=== PATIENT | male | born 2000 | race Hispanic/Latino ===

== ENCOUNTER 2021-01-15 22:30 | Emergency (ER) | payer SELFPAY ==
[2021-01-16 00:30] LABS: SARS-COV-2 RT PCR NEGATIVE (NEGATIVE)
[2021-01-16 02:06] LABS: Absolute Lymphocytes (CBC) 1.3 K/uL (0.7-4.9); Basophils % 0.3 % (0-1.3); Hematocrit 40.2 % (39.6-49.0); Lymphocytes % 18.4 % (15.3-44.8); MPV 9.3 fL (7.6-11.3); RBC Red Blood Cell Count 4.41 M/uL (4.33-5.43)
[2021-01-16] MEDS ORDERED: NA CHLORIDE 0.9% 1,000 ML ONE (02:14)
[2021-01-16 02:22] LABS: Protime INR 1.12
[2021-01-16 02:35] LABS: ALT/SGPT 39 U/L (12-78); AST/SGOT 14 U/L (15-37); Albumin 4.1 g/dL (3.4-5.0); Alkaline Phosphatase 76 U/L (45-117); BUN Blood Urea Nitrogen 12 mg/dL (7-18); Bicarbonate 28 mmol/L (21-32); Bilirubin Direct 0.1 mg/dL (0-0.2); Bilirubin Total 0.3 mg/dL (0.2-1.0); Glucose Level 101 mg/dL (74-106); Lipase 83 U/L (73-393); Magnesium 2.2 mg/dL (1.8-2.4); Potassium 3.8 mmol/L (3.5-5.1); Protein, Total 7.6 g/dL (6.4-8.2); Sodium Level 141 mmol/L (136-145); Troponin (Emerg Dept Use Only) < 0.02 ng/mL (0.0-0.045)
--- NOTE | 2021-01-16 03:05 | ER ---
Nurse's Notes [facility] Name: Chidi Day Age: 20 yrs Sex: Male : 2000 Arrival Date: 01/15/2021 Time: 22:33 Bed External Waiting Private MD: Diagnosis: Syncope Near Presentation: 01/15 22:52 Chief complaint: Spouse and/or significant other states: pt was at dinner and got weak bs2 and had a syncopal episode. Coronavirus screen: Vaccine status: Patient reports receiving the 1st dose of the Covid vaccine. Date December 08, 2020 estimated and past due for second dose. Ebola Screen: No symptoms or risks identified at this time. Initial Sepsis Screen: Does the patient meet any 2 criteria? No. Patient's initial sepsis screen is negative. Does the patient have a suspected source of infection? No. Patient's initial sepsis screen is negative. Risk Assessment: Do you want to hurt yourself or someone else? Patient reports no desire to harm self or others. Onset of symptoms was January 15, 2021. 22:52 Method Of Arrival: Ambulatory bs2 22:52 Acuity: FEMI 3 bs2 Triage Assessment: 22:55 General: Appears in no apparent distress. uncomfortable, slender, Behavior is bs2 cooperative, flat. Pain: Complains of pain in abdomen. Neuro: Reports dizziness, headache a syncopal episode. Historical: - Allergies: 22:55 No Known Allergies; bs2 - Home Meds: 22:55 None [Active]; bs2 - PMHx: 22:55 None; bs2 - PSHx: 22:55 None; bs2 - Immunization history:: Adult Immunizations not up to date, Client reports having NOT received the Covid vaccine. - Social history:: Smoking status: Patient denies any tobacco usage or history of. Screenin/12 00:26 Abuse screen: Denies threats or abuse. Denies injuries from another. Nutritional bs2 screening: No deficits noted. Tuberculosis screening: No symptoms or risk factors identified. Fall Risk None identified. Assessment: 00:26 General: Appears in no apparent distress. slender, well groomed, well developed, bs2 Behavior is cooperative, flat. Neuro: Level of Consciousness is awake, alert, obeys commands, Oriented to person, place, time, situation, Snow Groomer are equal bilaterally Moves all extremities. Full function Weakness Gait is steady, Speech is normal, Facial symmetry appears normal, Pupils are PERRLA, Intact. Cardiovascular: Rhythm is regular. 00:40 Neuro: Reports a syncopal episode. bs2 Vital Signs: 01/15 22:52 BP 108 / 66; Pulse 74; Resp 14; Temp 98.2; Pulse Ox 100% ; Weight 78.02 kg; Height 5 bs2 ft. 10 in. (177.80 cm); Pain 5/10; 01/16 00:42 BP 106 / 52 LA Supine (auto/reg); Pulse 65; bs2 00:43 BP 102 / 68 LA Sitting (auto/reg); Pulse 66; bs2 00:43 BP 117 / 66 LA Standing (auto/reg); Pulse 81; bs2 03:15 BP 115 / 65; Pulse 65; Resp 15; Temp 98.6; Pulse Ox 100% ; Pain 0/10; bs2 01/15 22:52 Body Mass Index 24.68 (78.02 kg, 177.80 cm) bs2 ED Course: 01/15 22:33 Patient arrived in ED. wm 22:55 Triage completed. bs2 22:55 Arm band placed on right wrist. bs2 01/16 00:26 Patient has correct armband on for positive identification. Bed in low position. Call bs2 light in reach. Side rails up X 1. Pulse ox on. NIBP on. Door closed. Noise minimized. Lights dimmed. 00:26 No provider procedures requiring assistance completed. bs2 00:28 Sharmila Acosta, TOM is Primary Nurse. bs2 00:44 Bernardo Saez PA is PHCP. cp 01:35 Stephon Singh MD is Attending Physician. cp 01:58 XRAY Chest (1 view) In Process Unspecified. EDMS 02:02 Inserted saline lock: 20 gauge in right antecubital area, using aseptic technique. lp1 Blood collected. 03:30 IV discontinued, intact, bleeding controlled, No redness/swelling at site. bs2 Administered Medications: 02:02 Drug: NS 0.9% 1000 ml Route: IV; Rate: 1 bolus; Site: right antecubital; lp1 Point of Care Testing: Blood Glucose: 01/15 22:58 Blood Glucose: 133 mg/dL; bs2 Ranges: Outcome: 01/16 03:04 Discharge ordered by . cp 03:30 Discharged to home ambulatory, with family. bs2 03:30 Condition: improved 03:30 Discharge instructions given to patient, family, Instructed on discharge instructions, follow up and referral plans. Demonstrated understanding of instructions, follow-up care. 07:27 Patient left the ED. bs2 Signatures: Dispatcher [employer] EDMS Janell Hartley RN RN lp1 Bernardo Saez PA PA cp Marsh, Wendy wm Smith, Bridget, RN RN bs2
--- NOTE | 2021-01-16 03:05 | EDPHYS ---
Physician Documentation [facility] Name: Chidi Day Age: 20 yrs Sex: Male : 2000 Arrival Date: 01/15/2021 Time: 22:33 Bed External Waiting Private MD: ED Physician Stephon Singh HPI: 01/16 01:30 This 20 yrs old Male presents to ER via Ambulatory with complaints of Syncope cp - A few times, Abdominal Pain. 01:30 The patient has experienced syncope, lost consciousness. Onset: The symptoms/episode cp began/occurred last night. Duration: The patient has had multiple episodes, that last an unknown period of time. Context: the episode(s) was witnessed, by family, occurred at a restaurant, occurred while the patient was standing, Just prior to the episode the patient experienced general weaakness. Associated injury: The patient did not suffer any apparent associated injury. Associated signs and symptoms: Pertinent positives: abdominal pain, Pertinent negatives: chest pain, confusion, diaphoresis, headache, lightheadedness, palpitations, seizure, vomiting. Current symptoms: general weakness. Historical: - Allergies: 01/15 22:55 No Known Allergies; bs2 - Home Meds: 22:55 None [Active]; bs2 - PMHx: 22:55 None; bs2 - PSHx: 22:55 None; bs2 - Immunization history:: Adult Immunizations not up to date, Client reports having NOT received the Covid vaccine. - Social history:: Smoking status: Patient denies any tobacco usage or history of. ROS: 01/16 01:35 Constitutional: Negative for body aches, chills, fever, poor PO intake. cp 01:35 Cardiovascular: Negative for chest pain, palpitations. cp 01:35 Respiratory: Negative for cough, shortness of breath, wheezing. 01:35 Abdomen/GI: Positive for abdominal pain, Negative for nausea, vomiting, and diarrhea, constipation. 01:35 Back: Negative for pain at rest, pain with movement. 01:35 MS/extremity: Negative for injury or acute deformity, decreased range of motion. 01:35 Neuro: Positive for syncope, weakness, Negative for altered mental status, dizziness, headache. 01:35 All other systems are negative. Exam: 01:40 Constitutional: The patient appears in no acute distress, alert, awake, cp non-diaphoretic, non-toxic, well developed, well nourished. 01:40 Head/Face: Normocephalic, atraumatic. cp 01:40 Eyes: Periorbital structures: appear normal, Pupils: equal, round, and reactive to light and accomodation, Extraocular movements: intact throughout, Conjunctiva: normal, no exudate, no injection, Sclera: no appreciated abnormality, Lids and lashes: appear normal, bilaterally. 01:40 ENT: External ear(s): are unremarkable, Nose: is normal, Mouth: Lips: moist, Oral mucosa: moist, Posterior pharynx: Airway: no evidence of obstruction, patent. 01:40 Neck: ROM/movement: is normal, is supple, without pain, no range of motions limitations. 01:40 Chest/axilla: Inspection: normal, Palpation: is normal, no crepitus, no tenderness. 01:40 Cardiovascular: Rate: normal, Rhythm: regular, Heart sounds: murmur, not appreciated. 01:40 Respiratory: the patient does not display signs of respiratory distress, Respirations: normal, no use of accessory muscles, no retractions, labored breathing, is not present, Breath sounds: are clear throughout, no decreased breath sounds, no stridor, no wheezing. 01:40 Abdomen/GI: Inspection: abdomen appears normal, Bowel sounds: active, all quadrants, Palpation: abdomen is soft and non-tender, in all quadrants. 01:40 Back: pain, is absent, ROM is normal. 01:40 Musculoskeletal/extremity: Exam is negative for decreased range of motion, deformity, injury. 01:40 Neuro: Orientation: to person, place \T\ time. Mentation: is normal, Cerebellar function: is grossly normal, Motor: moves all fours, strength is normal, Sensation: is normal. 02:14 ECG was reviewed by the Attending Physician. cp Vital Signs: 01/15 22:52 BP 108 / 66; Pulse 74; Resp 14; Temp 98.2; Pulse Ox 100% ; Weight 78.02 kg; Height 5 bs2 ft. 10 in. (177.80 cm); Pain 5/10; 01/16 00:42 BP 106 / 52 LA Supine (auto/reg); Pulse 65; bs2 00:43 BP 102 / 68 LA Sitting (auto/reg); Pulse 66; bs2 00:43 BP 117 / 66 LA Standing (auto/reg); Pulse 81; bs2 03:15 BP 115 / 65; Pulse 65; Resp 15; Temp 98.6; Pulse Ox 100% ; Pain 0/10; bs2 01/15 22:52 Body Mass Index 24.68 (78.02 kg, 177.80 cm) bs2 MDM: 01:06 Patient medically screened. cp 03:00 Data reviewed: vital signs, nurses notes, lab test result(s), EKG, radiologic studies, cp plain films. 03:00 Differential Diagnosis: cardiac arrhythmia, drug effect, GI bleed, vasovagal episode. cp Test interpretation: by ED physician or midlevel provider: ECG, plain radiologic studies. Counseling: I had a detailed discussion with the patient and/or guardian regarding: the historical points, exam findings, and any diagnostic results supporting the discharge/admit diagnosis, lab results, radiology results, the need for outpatient follow up, a family practitioner, to return to the emergency department if symptoms worsen or persist or if there are any questions or concerns that arise at home. Response to treatment: the patient's symptoms have markedly improved after treatment, patient is well hydrated. and as a result, I will discharge patient. 01/15 23:09 Order name: Glucose, Ancillary Testing; Complete Time: 01:06 EDMS 01/16 00:30 Order name: COVID-19/FLU A+B; Complete Time: 01:06 EDMS 01/16 01:16 Order name: Basic Metabolic Panel cp 01/16 01:16 Order name: CBC with Diff cp 01/16 01:16 Order name: LFT's cp 01/16 01:16 Order name: Magnesium cp 01/16 01:16 Order name: PT-INR; Complete Time: 02:48 cp 01/16 01:16 Order name: Troponin (emerg Dept Use Only); Complete Time: 02:48 cp 01/16 01:16 Order name: Lipase; Complete Time: 02:48 cp 01/16 01:17 Order name: Basic Metabolic Panel; Complete Time: 02:48 EDMS 01/16 02:48 Interpretation: Normal except: CL 108. cp 01/16 00:40 Order name: Orthostatic Blood Pressure; Complete Time: 00:40 bs2 01/16 01:16 Order name: XRAY Chest (1 view) 01/16 01:16 Order name: EKG; Complete Time: 01:17 01/16 01:16 Order name: Cardiac monitoring; Complete Time: 02:02 01/16 01:16 Order name: EKG - Nurse/Tech; Complete Time: 02:15 cp 01/16 01:16 Order name: IV Saline Lock; Complete Time: 02:02 01/16 01:16 Order name: Labs collected and sent; Complete Time: 02:02 01/16 01:16 Order name: O2 Per Protocol; Complete Time: 02:02 01/16 01:16 Order name: O2 Sat Monitoring; Complete Time: 02:02 01/16 01:17 Order name: CBC with Automated Diff; Complete Time: 02:22 EDMS 01/16 02:22 Interpretation: Normal except: LISANDRO% 74.7. 01/16 01:17 Order name: Liver (Hepatic) Function; Complete Time: 02:48 EDMS 01/16 01:17 Order name: Magnesium; Complete Time: 02:48 EDMS EC:14 Rate is 58 beats/min. Rhythm is regular. PA interval is normal. QRS interval is normal. cp QT interval is normal. T waves are Inverted in lead aVR. Interpreted by me. Reviewed by me. Administered Medications: 02:02 Drug: NS 0.9% 1000 ml Route: IV; Rate: 1 bolus; Site: right antecubital; lp1 Point of Care Testing: Blood Glucose: 01/15 22:58 Blood Glucose: 133 mg/dL; bs2 Ranges: Critical Glucose Levels:Adult <50 mg/dl or >400 mg/dl <40 mg/dl or >180 mg/dl Disposition: 01/16 03:15 Chart complete. cp 01/17 06:45 Co-signature as Attending Physician, Stephon Singh MD I agree with the assessment and tw4 plan of care. Disposition Summary: 01/16/21 03:04 Discharge Ordered Location: Home cp Problem: new cp Symptoms: have improved cp Condition: Stable cp Diagnosis - Syncope Near cp Followup: cp - With: Private Physician - When: 1 - 2 days - Reason: Recheck today's complaints Discharge Instructions: - Discharge Summary Sheet cp - Near-Syncope cp - Syncope cp Forms: - Medication Reconciliation Form cp - Thank You Letter cp - Antibiotic Education cp - Prescription Opioid Use cp Signatures: Dispatcher [employer] EDMS Janell Hartley, RN RN lp1 Bernardo Saez PA PA cp Wadley, Terrence, MD MD tw4 Sharmila Acosta RN RN bs2 Corrections: (The following items were deleted from the chart) 01/15 23:47 23:01 Influenza Screen (A ordered. EDMS EDMS 23:47 23:01 Influenza Screen (A \T\ B)+[id number].BRZ ordered. EDMS EDMS
[2021-01-16 08:10] VITALS: O2SAT 100
[2021-01-16 08:14] VITALS: BP 115/65; TEMP 98.6
--- NOTE | 2021-01-16 12:15 | RAD REPORT ---
EXAM DESCRIPTION: RAD - Chest Single View - 01/16/2021 1:59 am CLINICAL HISTORY: syncope Chest pain. COMPARISON: No comparisons FINDINGS: Portable technique limits examination quality. The lungs are grossly clear. The heart is normal in size. No displaced fractures. IMPRESSION: No acute intrathoracic process suspected.
== END 2021-01-16 07:27 | disposition home or self-care (01) ==
LOC: ER 22:30
DX: R55 Syncope and collapse (principal); R10.9 Unspecified abdominal pain; Z20.822 Contact with and (suspected) exposure to COVID-19
CPT/HCPCS: 0240U; 36415; 71045; 80048; 80076; 82947; 83690; 83735; 84484; 85025; 85610; 93005; 99284; J7030